=== PATIENT | female | born 1995 | race African-American/Black ===

== ENCOUNTER 2020-11-10 19:24 | Emergency (ER) | payer OTHER, SELFPAY ==
[2020-11-10] MEDS ORDERED: Mag-Al Plus 1200 MG/1200 MG/120 MG/30 ML UDCUP ONE (19:55)
[2020-11-10] MEDS ORDERED: Lidocaine Viscous Sol 2% 15 ml UD Cup ONE (19:55)
[2020-11-10] MEDS ORDERED: Famotidine/PF 20 mg/2ml Vial ONE (19:56)
[2020-11-10] MEDS ORDERED: Lorazepam 2 MG/ML VIAL ONE (19:56)
[2020-11-10] MEDS ORDERED: Famotidine 20 MG TAB ONE (20:02)
== END 2020-11-10 20:24 | disposition home or self-care (01) ==
LOC: CSHERS 19:24
DX: F41.9 Anxiety disorder, unspecified (principal); K21.9 Gastro-esophageal reflux disease without esophagitis; I10 Essential (primary) hypertension
CPT/HCPCS: 93005; 93010; J2060; S0028

== ENCOUNTER 2023-10-05 19:16 | Emergency (ER) | payer SELFPAY ==
[2023-10-05 20:37] LABS: Bilirubin Neg (Negative); Blood, Urine 250 (Negative); Clarity Slightly Cloudy (Clear); Glucose, Urine (Dipstick) Normal (Negative); Ketone, Urine Negative (Negative); Leukocyte Negative (Negative); Nitrite Negative (Negative); Protein, Urine (Dipstick) 15 mg/dl (Neg-Trace); Specific Gravity, Urine 1.015 (1.005-1.030); Urobilinogen Normal mg/dL (Less than 2); pH, Urine 6.5 (5.0-9.0)
[2023-10-05 20:46] LABS: #Eosinphils 0.1 10x3/uL (0.0-0.5); #Monocytes 0.5 10x3/uL (0.0-1.1); #Neutrophils 3.1 10x3/uL (1.5-8.4); %Basophils 0.8 % (0.0-2.0); %Eosinophils 1.1 % (0.0-6.0); %Lymphocytes 31.3 % (18.0-47.0); %Monocytes 8.9 % (0.0-10.0); %Neutrophils 57.7 % (40.0-75.0); Hematocrit 25.6 % (34.9-44.5); Hemoglobin 8.5 g/dL (12.0-15.5); Mean Corpuscular HGB CONC 33.2 g/dL (32.0-36.0); Mean Corpuscular Hemoglobin 24.3 pg (27.0-33.0); Mean Corpuscular Volume 73.1 fl (81.6-98.3); Mean Platelet Volume 10.5 fl (7.4-10.4); Platelet Count 458 10x3/uL (150-450); RBC Distribution Width 16.5 % (11.5-14.5); White Blood Cell (WBC) Count 5.3 10x3/uL (3.5-10.5)
[2023-10-05 20:48] LABS: Bacteria/HPF Rare-Few HPF (None Seen); CAUTI Indications for Culture Alt mental st,lethar; Squamous Epithelial 0-3 HPF (0-3); WBC/HPF 0-3 HPF (0-3)
[2023-10-05 20:49] LABS: Urine Culture Reflex No No
[2023-10-05 20:55] LABS: ALT (SGPT) 7 U/L (8-55); AST (SGOT) 14 U/L (5-34); Albumin 4.7 g/dL (3.5-5.0); Alkaline Phosphatase 53 U/L (40-110); Anion Gap 13 mmol/L (10-20); BUN (Urea Nitrogen) 9 mg/dL (7.0-18.7); Bilirubin, Total 0.4 mg/dL (0.2-1.2); Calc. Creatinine Clearance 0 mL/min (70-130); Calcium 9.4 mg/dL (7.8-10.44); Carbon Dioxide 22 mmol/L (22-29); Chloride 108 mmol/L (98-107); Estimated GFR 82; Globulin 3.3 g/dL (2.4-3.5); Glucose 103 mg/dL (70-105); Potassium 3.8 mmol/L (3.5-5.1); Sodium 139 mmol/L (136-145)
[2023-10-05 21:12] LABS: Microcytosis SLIGHT = 6-15 cells (100X) (0-5/hpf); Platelet Adequacy Comment Appears Increased
== END 2023-10-05 22:13 | disposition home or self-care (01) ==
LOC: CSHERS 19:16
DX: D64.9 Anemia, unspecified (principal); F41.9 Anxiety disorder, unspecified
CPT/HCPCS: 36415; 71045; 80053; 81001; 85025; 86850; 86900; 86901; 93005